=== PATIENT | male | born 1950 | race Caucasian/White ===

== ENCOUNTER → 2019-04-20 | Outpatient (CLI) | payer MEDICARE, BC ==
--- NOTE | 2019-04-20 09:41 | RADIOLOGY REPORT (SQ) ---
EXAM DESCRIPTION: CT ABD/PELVIS NO ORAL OR IV COMPLETED DATE/TIME: 04/20/2019 9:21 am REASON FOR STUDY: (R10.31)RIGHT LOWER QUADRANT PAIN R10.31 RIGHT LOWER QUADRANT PAIN COMPARISON: None. TECHNIQUE: CT scan of the abdomen and pelvis performed without intravenous or oral contrast. Images reviewed with lung, soft tissue, and bone windows. Reconstructed coronal and sagittal MPR images revi ewed. All images stored on PACS. All CT scanners at this facility use dose modulation, iterative reconstruction, and/or weight based d osing when appropriate to reduce radiation dose to as low as reasonably achievable (ALARA). [facility]: Dose Right [facility]: CareDose [facility]: Dose Right [facility]: Teradose 4D [facility]: [employer] RADIATION DOSE: CT Rad equipment meets quality standard of care and radiation dose reduction techniq ues were employed. CTDIvol: 8.5 mGy. DLP: 431 mGy-cm.mGy. LIMITATIONS: None. FINDINGS: LOWER CHEST: No significant findings. No nodules or infiltrates. NON-CONTRASTED LIVER, SPLEEN, ADRENALS: Evaluation limited by lack of IV contrast. No identified sign ificant masses. PANCREAS: No masses. No peripancreatic inflammatory changes. GALLBLADDER: No identified stones by CT criteria. No inflammatory changes to suggest cholecystitis. RIGHT KIDNEY AND URETER: No suspicious masses. Assessment limited by lack of IV contrast. Small non obstructing right renal calculi. No hydronephrosis or hydroureter. LEFT KIDNEY AND URETER: No suspicious masses. Assessment limited by lack of IV contrast. Numerous s mall nonobstructing left renal calculi. The largest measures 3.5 mm. No hydronephrosis or hydroure ter. AORTA AND RETROPERITONEUM: No aneurysm. No retroperitoneal masses or adenopathy. BOWEL AND PERITONEAL CAVITY: No obvious masses or inflammatory changes. No free fluid. APPENDIX: Surgically absent. PELVIS, BLADDER, AND ABDOMINAL WALL:There is a left inguinal hernia containing omental fat only. Edel ges through the pelvis are limited due to bilateral hip prostheses. BONES: No significant findings. OTHER: No other significant finding. IMPRESSION: Small nonobstructing renal calculi. No acute findings. COMMENT: Quality ID # [id number]: Final reports with documentation of one or more dose reduction techniques (e.g., Automated exposure control, adjustment of the mA and/or kV according to patient size, use of iterative reconstruction technique) TECHNICAL DOCUMENTATION: JOB ID: [id number] [facility] [employer]- All Rights Reserved Reading location - IP/workstation name: [email or web address]
== END ==
LOC: RAD 08:57
PROVIDERS: ATTEND Surgery
DX: N20.0 Calculus of kidney (principal); R10.31 Right lower quadrant pain
CPT/HCPCS: 74176

== ENCOUNTER 2019-05-07 06:44 | Inpatient (IN) | payer MEDICARE, BC ==
[2019-05-07] MEDS: IPRATROPIUM/ALBUTEROL 0.5-2.5 MG/3 ML AMPUL NEB ONE ×2 (06:53→07:03)
[2019-05-07] MEDS: METHYLPREDNISOLONE INJ 125 MG/2 ML SDV ONE ×2 (06:56→07:03)
[2019-05-07] MEDS ORDERED: METHYLPREDNISOLONE INJ 125 MG/2 ML SDV IV ONE (07:01)
[2019-05-07] MEDS ORDERED: IPRATROPIUM/ALBUTEROL 0.5-2.5 MG/3 ML AMPUL NEB ONE (07:01)
[2019-05-07] MEDS: ALBUTEROL SULFATE 0.083% NEB 2.5 MG/3 ML AMPUL NEB SCH ×2 (07:05→07:35)
[2019-05-07] MEDS ORDERED: BENZONATATE 100 MG CAPSULE PO ONE (07:18)
[2019-05-07] MEDS ORDERED: PREDNISONE 20 MG TABLET PO ONE (07:18)
[2019-05-07] MEDS ORDERED: LIDOCAINE 1% INJ-PF (10 MG/ML) 30 ML SDV NEB ONE (07:19)
[2019-05-07] MEDS ORDERED: NORMAL SALINE 1000 ML 1,000 ML IV ONE ×2 (07:40→10:09)
--- NOTE | 2019-05-07 08:28 | RADIOLOGY REPORT (SQ) ---
EXAM DESCRIPTION: CHEST SINGLE VIEW COMPLETED DATE/TIME: 05/07/2019 7:17 am REASON FOR STUDY: SOB; O2 sat 86% room air; Wheezing COMPARISON: None. FINDINGS: Single-view chest AP portable upright. Mild cardiomegaly and central vascular congestion. No pneumothorax. No consolidating pneumonia. TECHNICAL DOCUMENTATION: JOB ID: [id number] Reading location - IP/workstation name: [email or web address]
[2019-05-07 08:34] LABS: ABSOLUTE BASOPHILS # (AUTO) 0.1 10^3/uL (0.0-0.2); ABSOLUTE EOSINOPHILS # (AUTO) 0.3 10^3/uL (0.0-0.6); ABSOLUTE LYMPHOCYTES (AUTO) 1.2 10^3/uL (0.5-4.7); ABSOLUTE MONOCYTES (AUTO) 0.7 10^3/uL (0.1-1.4); ABSOLUTE NEUT (AUTO) 9.1 10^3/uL (1.7-8.2); BASOPHILS % (AUTO) 0.4 % (0-2); EOSINOPHILS % (AUTO) 2.7 % (0-6); HEMOGLOBIN 19.3 g/dL (13.5-17.0); LYMPHOCYTES % (AUTO) 10.8 % (13-45); MEAN CORPUSCULAR HEMOGLOBIN 30.8 pg (27.0-33.4); MEAN CORPUSCULAR HGB CONC 33.2 g/dL (32.0-36.0); MEAN CORPUSCULAR VOLUME 93 fl (80-97); MONOCYTES % (AUTO) 6.4 % (3-13); PLATELET COUNT 158 10^3/uL (150-450); RED BLOOD COUNT 6.25 10^6/uL (4.35-5.55); RED CELL DISTRIBUTION WIDTH 13.8 % (11.5-14.0); SEGMENTED NEUTROPHILS % (AUTO) 79.7 % (42-78); TOTAL CELLS COUNTED % (AUTO) 100 %; WHITE BLOOD COUNT 11.5 10^3/uL (4.0-10.5)
[2019-05-07 08:37] LABS: HEMATOCRIT 58.1 % (37.9-51.0)
[2019-05-07 08:40] LABS: ALBUMIN 4.3 g/dL (3.5-5.0); ALKALINE PHOSPHATASE 69 U/L (38-126); ANION GAP 9 (5-19); ASPARTATE AMINO TRANSFERASE 22 U/L (17-59); BILIRUBIN,DIRECT 0.3 mg/dL (0.0-0.4); BILIRUBIN,TOTAL 0.5 mg/dL (0.2-1.3); BLOOD UREA NITROGEN 9 mg/dL (7-20); CALCIUM 9.3 mg/dL (8.4-10.2); CARBON DIOXIDE 27 mmol/L (22-30); CHLORIDE 101 mmol/L (98-107); CREATINE KINASE 173 U/L (55-170); GLUCOSE 112 mg/dL (75-110); POTASSIUM 4.2 mmol/L (3.6-5.0); TOTAL PROTEIN 6.9 g/dL (6.3-8.2)
--- NOTE | 2019-05-07 09:12 | ER Document Report ---
Entered by PRIYANK RODRIGUEZ SCRIBE 05/07/19 0710 Acting as scribe for:AGUILAR HENNING MD ED Respiratory Problem - General Chief Complaint: Productive Cough Stated Complaint: COUGH Time Seen by Provider: 05/07/19 07:10 Primary Care Provider: ELVIA MORROW [ACTIVE STAFF] - Follow up as needed Mode of Arrival: Ambulatory Information source: Patient Notes: Patient is a 68-year-old male who presents to the emergency department today with complaints of a cough. Patient states he has had trouble bringing up anything, stating he has been small amounts and clear. Patient states he took Mucinex about midnight last night with no relief. Patient mentions he had been having low blood pressure so he was told to stop his blood pressure medications. He stopped his BP meds and his blood pressure began to rise and a week and half ago he was started back on his blood pressure medication. TRAVEL OUTSIDE OF THE [place] IN LAST 30 DAYS: No - Related Data Allergies/Adverse Reactions: No Known Allergies Allergy (Unverified 05/07/19 07:04) Past Medical History - General Information source: Patient - Social History Smoking Status: Unknown if Ever Smoked Frequency of alcohol use: None Drug Abuse: None Lives with: Family Family History: Reviewed & Not Pertinent Patient has suicidal ideation: No Patient has homicidal ideation: No - Past Medical History Cardiac Medical History: Reports: Hx Coronary Artery Disease, Hx Hypercholesterolemia, Hx Hypertension Pulmonary Medical History: Reports: Hx COPD Past Surgical History: Reports: Hx Appendectomy, Hx Coronary Artery Bypass Graft - Triple bypass, Hx Herniorrhaphy, Hx Orthopedic Surgery - bilateral hip replacemet. left rotator cuff repair. anterior cervical fusio, Hx Tonsillectomy Review of Systems - Review of Systems Constitutional: No symptoms reported EENT: No symptoms reported Cardiovascular: No symptoms reported Respiratory: See HPI, Cough Gastrointestinal: No symptoms reported Genitourinary: No symptoms reported Male Genitourinary: No symptoms reported Musculoskeletal: No symptoms reported Skin: No symptoms reported Hematologic/Lymphatic: No symptoms reported Neurological/Psychological: No symptoms reported -: Yes All other systems reviewed and negative Physical Exam - Vital signs Vitals: Temp Pulse Resp BP Pulse Ox 98.7 F 95 24 H 144/66 H 86 L 05/07/19 06:44 05/07/19 06:44 05/07/19 06:44 05/07/19 06:44 05/07/19 06:44 - Notes Notes: Physical Exam: General: Alert, appears well. HEENT: Normocephalic. Atraumatic. PERRL. Extraocular movements intact. Oropharynx clear. Neck: Supple. Non-tender. Respiratory: No respiratory distress. Wheezing and rhonchi with forced cough. Dry very harsh sounding cough throughout exam. Cardiovascular: Regular rate and rhythm. Abdominal: Normal Inspection. Non-tender. No distension. Normal Bowel Sounds. Back: No gross abnormalities. Extremities: Moves all four extremities. Upper extremities: Normal inspection. Normal ROM. Lower extremities: Normal inspection. No edema. Normal ROM. Neurological: Normal cognition. AAOx4. Normal speech. Psychological: Normal affect. Normal Mood. Skin: Warm. Dry. Normal color. Course - Re-evaluation Re-evalutation: 05/07/19 10:07 The patient's blood pressure remains low with systolic pressure in the 80s. His hemoglobin is 19.3, when asked about this he states that 3 years [address] he saw Dr. Barnhart for high hemoglobin and had 3 episodes of phlebotomy which brought it down to about 17. He states it has stayed that way for the last 3 years. The last time his blood was checked was about 1-1/2 months ago and they said it was normal then. He still does have diffuse expiratory expiratory wheezes and some rhonchi which sounds more like COPD exacerbation than heart failure. - Vital Signs Vital signs: Temp Pulse Resp BP Pulse Ox 98.7 F 95 21 H 94/73 L 94 05/07/19 06:44 05/07/19 06:44 05/07/19 08:45 05/07/19 08:45 05/07/19 08:45 - Laboratory Result Diagrams: 05/07/19 06:55 05/07/19 06:55 Laboratory results interpreted by me: 05/07/19 05/07/19 06:55 06:55 WBC 11.5 H RBC 6.25 H Hgb 19.3 H Hct 58.1 H Lymph % (Auto) 10.8 L Absolute Neuts (auto) 9.1 H Seg Neutrophils % 79.7 H Sodium 136.9 L Glucose 112 H Creatine Kinase 173 H - Diagnostic Test Radiology reviewed: Image reviewed, Reports reviewed - Mild cardiomegaly with central vascular congestion - EKG Interpretation by Fl EKG shows normal: Sinus rhythm, [place], Intervals, QRS Complexes, ST-T Waves Rate: Normal - 85 Rhythm: NSR, APC's P Waves: LAE - Consults Zoraida Bob NP Time consulted: 10:12 Consulted provider: will come to ER Critical Care Note - Critical Care Note Total time excluding time spent on procedures (mins): 40 Discharge - Discharge Clinical Impression: Acute exacerbation of chronic obstructive pulmonary disease (COPD), Polycythemia Hypotension Qualifiers: Hypotension type: unspecified hypotension type Qualified Code(s): I95.9 - Hypotension, unspecified Condition: Fair Disposition: ADMITTED INPATIENT Admitting Provider: Azalia (Hospitalist) Unit Admitted: Telemetry Referrals: ELVIA MORROW [ACTIVE STAFF] - Follow up as needed Scribe Attestation: 05/07/19 07:44 I personally performed the services described in the documentation, reviewed and edited the documentation which was dictated to the scribe in my presence, and it accurately records my words and actions. I personally performed the services described in the documentation, reviewed and edited the documentation which was dictated to the scribe in my presence, and it accurately records my words and actions.
[2019-05-07 10:38] LABS: INTERNATIONAL RATION (INR) 1.09; PROTHROMBIN TIME 14.1 SEC (11.4-15.4)
[2019-05-07 10:41] LABS: D-DIMER 0.49 ug/mL (0.00-0.50)
[2019-05-07 10:41] LABS: APPEARANCE,URINE CLEAR; BILIRUBIN,URINE NEGATIVE (NEGATIVE); COLOR,URINE YELLOW; GLUCOSE, URINE NEGATIVE (NEGATIVE); KETONES,URINE NEGATIVE (NEGATIVE); LEUKOCYTE ESTERASE,URINE NEGATIVE (NEGATIVE); NITRITE,URINE NEGATIVE (NEGATIVE); PROTEIN,URINE NEGATIVE (NEGATIVE); URINE SPECIFIC GRAVITY 1.006; UROBILINOGEN,URINE NEGATIVE mg/dL (<2.0)
[2019-05-07] MEDS ORDERED: MAG HYDROX/AL HYDROX/SIMETH SUSP 30 ML UDCUP PO PRN (11:13)
[2019-05-07] MEDS ORDERED: ACETAMINOPHEN 325 MG TABLET PO PRN (11:13)
[2019-05-07] MEDS ORDERED: ALBUTEROL SULFATE 0.083% NEB 2.5 MG/3 ML AMPUL NEB PRN (11:13)
[2019-05-07] MEDS ORDERED: ONDANSETRON HCL INJ/PF 4 MG/2 ML SDV IV PRN (11:13)
[2019-05-07] MEDS ORDERED: DIAZEPAM 2 MG TABLET PO PRN (11:26)
[2019-05-07] MEDS ORDERED: NICOTINE 14 MG/24 HR PATCH.TD24 TD PRN (11:26)
[2019-05-07 12:18] LABS: ARTERIAL BLOOD HCO3 24.8 mmol/L (20-24); ARTERIAL BLOOD O2 SATURATION 91.5 % (94-98); ARTERIAL BLOOD PCO2 53.1 mmHg (35-45); ARTERIAL BLOOD PH 7.29 (7.35-7.45); ARTERIAL BLOOD PO2 68.8 mmHg (80-100); ARTERIAL BLOOD TOTAL CO2 26.4 mmol/L (23-27)
[2019-05-07 12:19] LABS: ARTERIAL BLOOD FIO2 1L
[2019-05-07] MEDS: ASPIRIN 81 MG TABLET, CHEWABLE PO SCH (12:34)
[2019-05-07 13:07] LABS: HEMATOCRIT 54.9 % (37.9-51.0); HEMOGLOBIN 18.7 g/dL (13.5-17.0); MEAN CORPUSCULAR HEMOGLOBIN 31.6 pg (27.0-33.4); MEAN CORPUSCULAR VOLUME 93 fl (80-97); PLATELET COUNT 181 10^3/uL (150-450); RED CELL DISTRIBUTION WIDTH 14.1 % (11.5-14.0); WHITE BLOOD COUNT 11.9 10^3/uL (4.0-10.5)
[2019-05-07] MEDS: IPRATROPIUM/ALBUTEROL 0.5-2.5 MG/3 ML AMPUL NEB SCH ×2 (13:43→21:44)
[2019-05-07] MEDS: HEPARIN SOD (PORCINE) 5,000 UNIT/ML 1 ML VIAL SUBCUT SCH ×2 (14:41→22:03)
[2019-05-07] MEDS: METHYLPREDNISOLONE INJ 40 MG/1 ML SDV IV SCH ×2 (14:41→22:03)
--- NOTE | 2019-05-07 15:31 | PDOC H&P ---
History of Present Illness Admission Date/PCP: 05/07/19 10:53 SHELDON BLACK PA-C Patient complains of: shortness of breath History of Present Illness: TRINITY SANCHEZ is a 68 year old male with a past medical history of hypertension, hyperlipidemia, CABG x3, and COPD who presented to the emergency department today with a complaint of sudden onset of shortness of breath beginning last night associated with productive cough, low-grade fever, and left-sided chest pain. He denies radiation of pain; described as tightness, without alleviating or aggravating factors. Evaluation in the emergency department revealed tachypnea, hypoxia on room air, hypotension, leukocytosis, elevated hemoglobin (19.3), normal coags and d-dimer, unremarkable chemistries, normal troponin, EKG demonstrating sinus rhythm with PACs, and benign chest x-ray. Patient was provided nebulizer treatments, IV Solu-Medrol, IV fluid bolus, and referred to the hospitalist service for admission and management of the above- stated complaints and findings. Past Medical History Cardiac Medical History: Reports: Coronary Artery Disease, Hyperlipidema, Hypertension Pulmonary Medical History: Reports: Chronic Obstructive Pulmonary Disease (COPD) EENT Medical History: Reports: None Neurological Medical History: Reports: None Endocrine Medical History: Reports: None Renal/ Medical History: Reports: None Malignancy Medical History: Reports: None GI Medical History: Reports: None Musculoskeltal Medical History: Reports: None Skin Medical History: Reports: None Psychiatric Medical History: Reports: Alcohol Dependency, Tobacco Dependency Traumatic Medical History: Reports: None Hematology: Reports: None, Other - Chronically elevated H&H Infectious Medical History: Reports: None Past Surgical History Past Surgical History: Reports: Appendectomy, Coronary Artery Bypass Graft - Tr iple bypass, Herniorrhaphy, Orthopedic Surgery - bilateral hip replacemet. left rotator cuff repair. anterior cervical fusio, Tonsillectomy Social History Information Source: Patient Lives with: Family Smoking Status: Current Every Day Smoker Cigars Per Day: 3 Number of Years Smokin Frequency of Alcohol Use: Heavy Amount of Alcoholic Beverages Per Day: 2-3 Hx Recreational Drug Use: No Drugs: None Hx Prescription Drug Abuse: No - Advance Directive Resuscitation Status: Full Code Family History Family History: Reviewed & Not Pertinent Parental Family History Reviewed: Yes Children Family History Reviewed: Yes Sibling(s) Family History Reviewed.: Yes Medication/Allergy Home Medications: Aspirin [Ecotrin 81 mg EC Tablet] 81 mg PO DAILY 05/07/19 Metoprolol Succinate [Toprol Xl 25 mg Tab.sr] 25 mg PO DAILY 05/07/19 Sildenafil Citrate [Viagra] 50 mg PO ASDIR PRN MDD 100 MG 05/07/19 Simvastatin [Zocor 40 mg Tablet] 40 mg PO QHS 05/07/19 Zolpidem Tartrate [Ambien 5 mg Tablet] 5 mg PO HSP PRN 05/07/19 Allergies/Adverse Reactions: No Known Allergies Allergy (Unverified 05/07/19 07:04) Review of Systems Constitutional: PRESENT: fever(s). ABSENT: chills, headache(s), weight gain, weight loss Eyes: ABSENT: visual disturbances Ears: ABSENT: hearing changes Cardiovascular: PRESENT: chest pain, dyspnea on exertion. ABSENT: edema, orthropnea, palpitations Respiratory: PRESENT: cough, dyspnea, sputum. ABSENT: hemoptysis Gastrointestinal: ABSENT: abdominal pain, constipation, diarrhea, hematemesis, hematochezia, nausea, vomiting Genitourinary: ABSENT: dysuria, hematuria Musculoskeletal: ABSENT: joint swelling Integumentary: ABSENT: rash, wounds Neurological: ABSENT: abnormal gait, abnormal speech, confusion, dizziness, focal weakness, syncope Psychiatric: ABSENT: anxiety, depression, homidical ideation, suicidal ideation Endocrine: ABSENT: cold intolerance, heat intolerance, polydipsia, polyuria Hematologic/Lymphatic: ABSENT: easy bleeding, easy bruising Physical Exam Vital Signs: Temp Pulse Resp BP Pulse Ox 98.7 F 100 17 128/79 H 95 05/07/19 06:44 05/07/19 13:43 05/07/19 14:00 05/07/19 13:01 05/07/19 14:00 Intake & Output 05/06/19 05/07/19 05/08/19 06:59 06:59 06:59 Intake Total 1999 Balance 1999 General appearance: PRESENT: no acute distress, cooperative, well-developed, well-nourished Head exam: PRESENT: atraumatic, normocephalic Eye exam: PRESENT: conjunctiva pink, EOMI, PERRLA. ABSENT: scleral icterus Ear exam: PRESENT: normal external ear exam Mouth exam: PRESENT: moist, tongue midline Neck exam: ABSENT: carotid bruit, JVD, lymphadenopathy, thyromegaly Respiratory exam: PRESENT: accessory muscle use, prolonged expiratory phas, rhon chi, tachypnea, wheezes. ABSENT: rales Cardiovascular exam: PRESENT: RRR, +S1, +S2. ABSENT: diastolic murmur, rubs, systolic murmur Pulses: PRESENT: normal dorsalis pedis pul Vascular exam: PRESENT: normal capillary refill GI/Abdominal exam: PRESENT: normal bowel sounds, soft. ABSENT: distended, guarding, mass, organolmegaly, rebound, tenderness Rectal exam: PRESENT: deferred Extremities exam: PRESENT: full ROM. ABSENT: calf tenderness, clubbing, pedal edema Musculoskeletal exam: PRESENT: ambulatory Neurological exam: PRESENT: alert, awake, oriented to person, oriented to place, oriented to time, oriented to situation, CN II-XII grossly intact. ABSENT: motor sensory deficit Psychiatric exam: PRESENT: appropriate affect, normal mood. ABSENT: homicidal ideation, suicidal ideation Skin exam: PRESENT: dry, intact, warm. ABSENT: cyanosis, rash Results Laboratory Results: 05/07/19 12:55 05/07/19 06:55 05/07/19 05/07/19 05/07/19 06:55 06:55 10:10 WBC 11.5 H RBC 6.25 H Hgb 19.3 H Hct 58.1 H MCV 93 MCH 30.8 MCHC 33.2 RDW 13.8 Plt Count 158 Seg Neutrophils % 79.7 H Carbonic Acid HCO3/H2CO3 Ratio ABG pH ABG pCO2 ABG pO2 ABG HCO3 ABG O2 Saturation ABG Base Excess FiO2 Sodium 136.9 L Potassium 4.2 Chloride 101 Carbon Dioxide 27 Anion Gap 9 BUN 9 Creatinine 0.75 Est GFR ( Amer) > 60 Glucose 112 H Calcium 9.3 Total Bilirubin 0.5 AST 22 Alkaline Phosphatase 69 Total Protein 6.9 Albumin 4.3 Urine Color YELLOW Urine Appearance CLEAR Urine pH 6.0 Ur Specific [place] 1.006 Urine Protein NEGATIVE Urine Glucose (UA) NEGATIVE Urine Ketones NEGATIVE Urine Blood SMALL H Urine Nitrite NEGATIVE Ur Leukocyte Esterase NEGATIVE Urine WBC (Auto) 1 Urine RBC (Auto) 2 05/07/19 05/07/19 11:44 12:55 WBC 11.9 H RBC 5.90 H Hgb 18.7 H Hct 54.9 H MCV 93 MCH 31.6 MCHC 34.0 RDW 14.1 H Plt Count 181 Seg Neutrophils % Carbonic Acid 1.60 H HCO3/H2CO3 Ratio 15:1 ABG pH 7.29 L ABG pCO2 53.1 H ABG pO2 68.8 L ABG HCO3 24.8 H ABG O2 Saturation 91.5 L ABG Base Excess -3.0 FiO2 1L Sodium Potassium Chloride Carbon Dioxide Anion Gap BUN Creatinine Est GFR ( Amer) Glucose Calcium Total Bilirubin AST Alkaline Phosphatase Total Protein Albumin Urine Color Urine Appearance Urine pH Ur Specific [place] Urine Protein Urine Glucose (UA) Urine Ketones Urine Blood Urine Nitrite Ur Leukocyte Esterase Urine WBC (Auto) Urine RBC (Auto) 05/07/19 05/07/19 05/07/19 06:55 06:55 06:55 Creatine Kinase 173 H Troponin I < 0.012 NT-Pro-B Natriuret Pep 287 Assessment and Plan - Diagnosis (1) Acute respiratory failure with hypoxia Is this a current diagnosis for this admission?: Yes Plan: Secondary to COPD exacerbation. Patient was found to have room air saturation of 86%; he is not home O2 dependent. ABG demonstrates respiratory acidosis with hypercapnia and hypoxia. D-dimer negative. Chest x-ray benign. No evidence of CHF on chest x-ray, laboratory evaluation, or exam. He is provided supplemental oxygen and BiPAP as needed to meet saturations gre ater than 89%. Follow-up ABG in the morning. Remaining management as below. (2) Acute exacerbation of chronic obstructive pulmonary disease (COPD) Is this a current diagnosis for this admission?: Yes Plan: Patient with history of COPD. He does have an 80-year pack history; stopped smoking 2 packs/day proximately 2 years ago when he transition to 3 cigars daily. He continues to have daily use. Is noted to have wheezing, rhonchi, accessory muscle use, and tachypnea. Supplemental oxygen and BiPAP as needed to maintain saturations greater than 89%. Continue scheduled and as needed nebulizer treatments. Continue IV Solu-Medrol. Mucinex twice daily. Incentive spirometer and flutter valve when off BiPAP. (3) Chest pain Is this a current diagnosis for this admission?: Yes Plan: Unclear etiology; cardiac versus musculoskeletal secondary to respiratory distr ess. Patient describes left chest pain, nonradiating, without exacerbating or alleviating factors. Pain is not worsened by movement/activity, deep inspiration or cough. EKG demonstrates normal sinus rhythm without acute findings. Chest x-ray is benign. Initial troponin is negative. We will continue monitor on continuous cardiac telemetry. Continue to trend troponins. Daily aspirin and statin therapy. (4) Hypotension Qualifiers: Hypotension type: unspecified hypotension type Qualified Code(s): I95.9 - Hypotension, unspecified Is this a current diagnosis for this admission?: Yes Plan: Unclear etiology improved following 2 L IV fluids. Patient reports that he was recently told to stop his lisinopril. He discontinued use for approximately 2 months but then noted that his blood pressure was 165/90 and so resumed lisinopril 2 weeks ago. This may be the possible cause of his hypotension today. Continue maintenance IV fluids. Orthostatic blood pressures every shift. Continue to hold lisinopril. (5) Polycythemia Is this a current diagnosis for this admission?: Yes Plan: Patient reports history of the same; proximal he 3 years ago the patient was incidentally found to have an elevated hemoglobin during preoperative blood work. He did see Dr. Barnhart who did phlebotomy x3 but reports that she was never able to identify the cause of his elevated H&H. Hemoglobin today 19.3. Of note, the patient does have an 80-year pack history and is a continuous tobacco user. Hemoglobin is minimally improved to 18.7 following a 2 L normal saline bolus. Continue maintenance IV fluids. Daily CBC. Smoking cessation is encouraged. Management of COPD exacerbation as above. DVT prophylaxis with heparin. Consider hematology consultation. (6) Tobacco dependence Is this a current diagnosis for this admission?: Yes Plan: Smoking cessation is encouraged. Nicotine replacement therapies are provided. (7) Alcohol dependence Qualifiers: Substance use status: uncomplicated Qualified Code(s): F10.20 - Alcohol dependence, uncomplicated Is this a current diagnosis for this admission?: Yes Plan: Patient admits to 2-3 drinks daily. Denies history of withdrawal. Folic acid and thiamin supplementation. PRN p.o. ativan as needed. Monitor closely for evidence of withdrawal.
--- NOTE | 2019-05-07 19:45 | EKG REPORT ---
SEVERITY:- BORDERLINE ECG - SINUS RHYTHM ATRIAL PREMATURE COMPLEX PROBABLE LEFT ATRIAL ABNORMALITY : Confirmed by: Luly Carmona MD 07-May-2019 19:45:35
[2019-05-07] MEDS: GUAIFENESIN 600 MG TABLET.SA PO SCH (22:03)
[2019-05-07] MEDS: FAMOTIDINE 20 MG TABLET PO SCH (22:03)
[2019-05-07] MEDS: ATORVASTATIN CALCIUM 40 MG TABLET PO SCH (22:03)
[2019-05-08] MEDS: ZOLPIDEM TARTRATE 5 MG TABLET PO PRN ×2 (00:05→21:33)
[2019-05-08] MEDS: IPRATROPIUM/ALBUTEROL 0.5-2.5 MG/3 ML AMPUL NEB SCH ×4 (02:23→20:05)
[2019-05-08] MEDS: METHYLPREDNISOLONE INJ 40 MG/1 ML SDV IV SCH ×3 (05:39→21:34)
[2019-05-08] MEDS: HEPARIN SOD (PORCINE) 5,000 UNIT/ML 1 ML VIAL SUBCUT SCH ×3 (05:40→21:32)
[2019-05-08 05:45] LABS: HEMATOCRIT 54.4 % (37.9-51.0); HEMOGLOBIN 18.2 g/dL (13.5-17.0); MEAN CORPUSCULAR HEMOGLOBIN 31.2 pg (27.0-33.4); MEAN CORPUSCULAR HGB CONC 33.4 g/dL (32.0-36.0); MEAN CORPUSCULAR VOLUME 93 fl (80-97); PLATELET COUNT 154 10^3/uL (150-450); RED BLOOD COUNT 5.83 10^6/uL (4.35-5.55); RED CELL DISTRIBUTION WIDTH 13.9 % (11.5-14.0); WHITE BLOOD COUNT 12.9 10^3/uL (4.0-10.5)
[2019-05-08 06:36] LABS: ANION GAP 6 (5-19); BLOOD UREA NITROGEN 12 mg/dL (7-20); CALCIUM 9.1 mg/dL (8.4-10.2); CARBON DIOXIDE 29 mmol/L (22-30); CHLORIDE 102 mmol/L (98-107); CHOLESTEROL 124.15 mg/dL (0-200); GLUCOSE 125 mg/dL (75-110); POTASSIUM 4.5 mmol/L (3.6-5.0); TRIGLYCERIDES 79 mg/dL (<150)
[2019-05-08 06:47] LABS: DIRECT LDL 84 mg/dL (<100)
[2019-05-08] MEDS: NORMAL SALINE 1000 ML 1,000 ML IV PRN ×2 (08:33→18:29)
[2019-05-08] MEDS ORDERED: METOPROLOL SUCCINATE 25 MG TAB.SR.24H PO SCH (10:00)
[2019-05-08 10:46] LABS: ARTERIAL BLOOD BASE EXCESS -0.1 mmol/L; ARTERIAL BLOOD FIO2 28%; ARTERIAL BLOOD H2CO3 1.36 mmol/L (1.05-1.35); ARTERIAL BLOOD HCO3 25.7 mmol/L (20-24); ARTERIAL BLOOD O2 SATURATION 95.2 % (94-98); ARTERIAL BLOOD PCO2 45.1 mmHg (35-45); ARTERIAL BLOOD PH 7.37 (7.35-7.45); ARTERIAL BLOOD PO2 77.8 mmHg (80-100)
[2019-05-08] MEDS: FAMOTIDINE 20 MG TABLET PO SCH ×2 (11:26→21:33)
[2019-05-08] MEDS: GUAIFENESIN 600 MG TABLET.SA PO SCH ×2 (11:26→21:34)
[2019-05-08] MEDS: ASPIRIN 81 MG TABLET, CHEWABLE PO SCH (11:27)
[2019-05-08] MEDS: DOCUSATE SODIUM 100 MG CAPSULE PO SCH (11:27)
--- NOTE | 2019-05-08 19:13 | PDOC PROGRESS REPORT ---
Subjective Progress Note for:: 05/08/19 Subjective:: TRINITY SANCHEZ is a 68 year old male with a past medical history of hypertension, hyperlipidemia, CABG x3, and COPD who was admitted 05/07/2019 for acute respiratory failure with hypoxia secondary to COPD exacerbation. Patient was seen on morning rounds with his present. He was found sitting up to the edge of the bed, comfortably, on supplemental oxygen by nasal cannula. He reports that he use the BiPAP overnight and found it helped his dyspnea significantly, however now with facial pain related to the mask. He does report that he was told to use a CPAP at home once but was unable to tolerate the mask and so has returned the machine. He previously has a slight improvement in his breathing today, though with increased sputum production. He denies fever, chills, chest pain, palpitations, orthopnea, abdominal pain, nausea vomiting and diarrhea. He has no questions or concerns. No concerns per nursing. Reason For Visit: ACUTE RESPIRATORY FAILURE WITH HYPOXIA, Physical Exam Vital Signs: Temp Pulse Resp BP Pulse Ox 98.0 F 87 22 H 92/57 L 95 05/08/19 15:29 05/08/19 15:29 05/08/19 16:11 05/08/19 15:29 05/08/19 15:29 Intake & Output 05/07/19 05/08/19 05/09/19 06:59 06:59 06:59 Intake Total 3350 1838 Balance 3350 1838 Weight 75.2 kg General appearance: PRESENT: no acute distress, cooperative, well-developed, well-nourished Head exam: PRESENT: atraumatic, normocephalic Eye exam: PRESENT: conjunctiva pink, EOMI, PERRLA. ABSENT: scleral icterus Ear exam: PRESENT: normal external ear exam Mouth exam: PRESENT: moist, tongue midline Neck exam: ABSENT: carotid bruit, JVD, lymphadenopathy, thyromegaly Respiratory exam: PRESENT: accessory muscle use, prolonged expiratory phas, rhonchi, symmetrical, wheezes, other - tight. Supplemental oxygen via NC. ABSENT: rales Cardiovascular exam: PRESENT: RRR, +S1, +S2. ABSENT: diastolic murmur, rubs, systolic murmur Pulses: PRESENT: normal dorsalis pedis pul Vascular exam: PRESENT: normal capillary refill GI/Abdominal exam: PRESENT: normal bowel sounds, soft. ABSENT: distended, guarding, mass, organolmegaly, rebound, tenderness Rectal exam: PRESENT: deferred Extremities exam: PRESENT: full ROM. ABSENT: calf tenderness, clubbing, pedal edema Musculoskeletal exam: PRESENT: ambulatory Neurological exam: PRESENT: alert, awake, oriented to person, oriented to place, oriented to time, oriented to situation, CN II-XII grossly intact. ABSENT: motor sensory deficit Psychiatric exam: PRESENT: appropriate affect, normal mood. ABSENT: homicidal ideation, suicidal ideation Skin exam: PRESENT: dry, intact, warm. ABSENT: cyanosis, rash Results Laboratory Results: 05/08/19 04:59 05/08/19 04:59 05/08/19 05/08/19 05/08/19 04:59 04:59 10:25 WBC 12.9 H RBC 5.83 H Hgb 18.2 H Hct 54.4 H MCV 93 MCH 31.2 MCHC 33.4 RDW 13.9 Plt Count 154 Carbonic Acid 1.36 H HCO3/H2CO3 Ratio 18:1 ABG pH 7.37 ABG pCO2 45.1 H ABG pO2 77.8 L ABG HCO3 25.7 H ABG O2 Saturation 95.2 ABG Base Excess -0.1 FiO2 28% Sodium 137.3 Potassium 4.5 Chloride 102 Carbon Dioxide 29 Anion Gap 6 BUN 12 Creatinine 0.66 Est GFR ( Amer) > 60 Glucose 125 H Calcium 9.1 Triglycerides 79 Cholesterol 124.15 LDL Cholesterol Direct 84 VLDL Cholesterol 16.0 HDL Cholesterol 45 05/07/19 05/07/19 05/07/19 06:55 06:55 06:55 Creatine Kinase 173 H Troponin I < 0.012 NT-Pro-B Natriuret Pep 287 05/07/19 05/07/19 14:50 20:53 Creatine Kinase Troponin I < 0.012 < 0.012 NT-Pro-B Natriuret Pep Assessment and Plan - Diagnosis (1) Acute respiratory failure with hypoxia Is this a current diagnosis for this admission?: Yes Plan: Secondary to COPD exacerbation. Patient was found to have room air saturation of 86%; he is not home O2 dependent. ABG demonstrates respiratory acidosis with hypercapnia and hypoxia. Follow-up ABG is improved. D-dimer negative. Chest x-ray benign. No evidence of CHF on chest x-ray, laboratory evaluation, or exam. He is provided supplemental oxygen and BiPAP as needed to meet saturations gre ater than 89%. Remaining management as below. (2) Acute exacerbation of chronic obstructive pulmonary disease (COPD) Is this a current diagnosis for this admission?: Yes Plan: Patient with history of COPD. He does have an 80-year pack history; stopped smoking 2 packs/day proximately 2 years ago when he transition to 3 cigars daily. He continues to have daily use. Is noted to have continued wheezing, rhonchi, accessory muscle use, and tachypnea. Supplemental oxygen and BiPAP as needed to maintain saturations greater than 89% . Continue scheduled and as needed nebulizer treatments. Continue IV Solu-Medrol. Mucinex twice daily. Incentive spirometer and flutter valve when off BiPAP. Recommend outpatient pulmonology follow-up and overnight sleep study. (3) Chest pain Is this a current diagnosis for this admission?: Yes Plan: Resovled; likely secondary to acute respiratory failure/distress. Patient describes left chest pain, nonradiating, without exacerbating or alleviating factors. Pain is not worsened by movement/activity, deep inspiration or cough. EKG demonstrates normal sinus rhythm without acute findings. Chest x-ray is benign. Troponins negative x 3 Lipid panel and A1C are nml. We will continue monitor on continuous cardiac telemetry. Continue to trend troponins. Daily aspirin and statin therapy. (4) Hypotension Qualifiers: Hypotension type: unspecified hypotension type Qualified Code(s): I95.9 - Hypotension, unspecified Is this a current diagnosis for this admission?: Yes Plan: Unclear etiology improved following 2 L IV fluids. Patient reports that he was recently told to stop his lisinopril. He disco ntinued use for approximately 2 months but then noted that his blood pressure was 165/90 and so resumed lisinopril 2 weeks ago. This may be the possible cause of his hypotension today. Continue maintenance IV fluids. Orthostatic blood pressures every shift. Continue to hold lisinopril. Half dose Metoprolol with holding parameters. Am Cortisol level pending; consider midodrine. (5) Polycythemia Is this a current diagnosis for this admission?: Yes Plan: Patient reports history of the same; proximal he 3 years ago the patient was incidentally found to have an elevated hemoglobin during preoperative blood work. He did see Dr. Barnhart who did phlebotomy x3 but reports that she was never able to identify the cause of his elevated H&H. Hemoglobin today 19.3-> 18.2 Of note, the patient does have an 80-year pack history and is a continuous tobacco user. Continue maintenance IV fluids. Daily CBC. Smoking cessation is encouraged. Management of COPD exacerbation as above. DVT prophylaxis with heparin. Discussed with Dr. Nunez; no additional work up/management needed while admitted. Follow up as outpatient. (6) Tobacco dependence Is this a current diagnosis for this admission?: Yes Plan: Smoking cessation is encouraged. Nicotine replacement therapies are provided. (7) Alcohol dependence Qualifiers: Substance use status: uncomplicated Qualified Code(s): F10.20 - Alcohol dependence, uncomplicated Is this a current diagnosis for this admission?: Yes Plan: Patient admits to 2-3 drinks daily. Denies history of withdrawal. Folic acid and thiamin supplementation. PRN p.o. ativan as needed. Monitor closely for evidence of withdrawal. - Time Time Spent with patient: 25-34 minutes Medications reviewed and adjusted accordingly: Yes Anticipated discharge: Home Within: within 72 hours
[2019-05-08] MEDS: ACETYLCYSTEINE 20% SOLN 800 MG/4 ML VIAL.NEB NEB SCH (20:05)
[2019-05-08] MEDS ORDERED: METOPROLOL SUCCINATE 25 MG TAB.SR.24H PO ONE (20:30)
[2019-05-08] MEDS: ATORVASTATIN CALCIUM 40 MG TABLET PO SCH (21:34)
[2019-05-09] MEDS: IPRATROPIUM/ALBUTEROL 0.5-2.5 MG/3 ML AMPUL NEB SCH ×4 (02:17→23:52)
[2019-05-09 04:51] LABS: HEMATOCRIT 51.8 % (37.9-51.0); HEMOGLOBIN 17.1 g/dL (13.5-17.0); MEAN CORPUSCULAR HEMOGLOBIN 30.8 pg (27.0-33.4); MEAN CORPUSCULAR VOLUME 93 fl (80-97); PLATELET COUNT 146 10^3/uL (150-450); RED BLOOD COUNT 5.56 10^6/uL (4.35-5.55); RED CELL DISTRIBUTION WIDTH 13.5 % (11.5-14.0); WHITE BLOOD COUNT 13.4 10^3/uL (4.0-10.5)
[2019-05-09] MEDS: METHYLPREDNISOLONE INJ 40 MG/1 ML SDV IV SCH ×3 (05:53→23:12)
[2019-05-09] MEDS: HEPARIN SOD (PORCINE) 5,000 UNIT/ML 1 ML VIAL SUBCUT SCH ×3 (05:53→23:20)
[2019-05-09] MEDS: METOPROLOL SUCCINATE 25 MG TAB.SR.24H PO SCH (09:12)
[2019-05-09] MEDS: DOCUSATE SODIUM 100 MG CAPSULE PO SCH (09:12)
[2019-05-09] MEDS: ASPIRIN 81 MG TABLET, CHEWABLE PO SCH (09:12)
[2019-05-09] MEDS: FAMOTIDINE 20 MG TABLET PO SCH ×2 (09:12→23:12)
[2019-05-09] MEDS: GUAIFENESIN 600 MG TABLET.SA PO SCH ×2 (09:13→23:12)
[2019-05-09] MEDS: ACETYLCYSTEINE 20% SOLN 800 MG/4 ML VIAL.NEB NEB SCH ×2 (09:46→19:58)
[2019-05-09 11:54] LABS: FREE T3 3.19 pg/mL (2.77-5.27); FREE T4 (FREE THYROXINE) 0.9 ng/dL (0.78-2.19)
[2019-05-09] MEDS ORDERED: COSYNTROPIN INJ 0.25 MG VIAL IV PRN (12:00)
[2019-05-09 12:07] LABS: THYROID STIMULATING HORMONE 1.55 uIU/mL (0.47-4.68)
[2019-05-09] MEDS: NORMAL SALINE 1000 ML 1,000 ML IV PRN (15:17)
[2019-05-09] MEDS ORDERED: HYDROCORTISONE 10 MG TABLET PO ONE (16:00)
[2019-05-09] MEDS ORDERED: CYCLOSPORINE 0.05% OPH EMULSIO 0.4 ML DROPERETTE OU ONE (16:00)
--- NOTE | 2019-05-09 18:39 | PDOC PROGRESS REPORT ---
Subjective Progress Note for:: 05/09/19 Subjective:: TRINITY SANCHEZ is a 68 year old male with a past medical history of hypertension, hyperlipidemia, CABG x3, and COPD who was admitted 05/07/2019 for acute respiratory failure with hypoxia secondary to COPD exacerbation. Patient was seen on afternoon rounds; no family present. He was found sitting up to the edge of the bed, comfortably, on room air. He reports that he use the BiPAP overnight and has used oxygen most of the day. He reports he is feeling much better today; decreased dsypnea at rest, improved cough. He denies fever, chills, chest pain, palpitations, orthopnea, abdominal pain, nausea vomiting and diarrhea. He has no questions or concerns; looking forward to possible dischage tomorrow. No concerns per nursing. Reason For Visit: ACUTE RESPIRATORY FAILURE WITH HYPOXIA, Physical Exam Vital Signs: Temp Pulse Resp BP Pulse Ox 97.6 F 79 23 H 124/76 98 05/09/19 15:23 05/09/19 15:23 05/09/19 15:23 05/09/19 15:23 05/09/19 15:23 Intake & Output 05/08/19 05/09/19 05/10/19 06:59 06:59 06:59 Intake Total 3350 3038 600 Balance 3350 3038 600 Weight 75.2 kg 72.3 kg General appearance: PRESENT: no acute distress, cooperative, well-developed, well-nourished Head exam: PRESENT: atraumatic, normocephalic Eye exam: PRESENT: conjunctiva pink, EOMI, PERRLA. ABSENT: scleral icterus Ear exam: PRESENT: normal external ear exam Mouth exam: PRESENT: moist, tongue midline Neck exam: ABSENT: carotid bruit, JVD, lymphadenopathy, thyromegaly Respiratory exam: PRESENT: rhonchi - bibasilar; clears briefly w/ cough, symmetrical, unlabored, wheezes - slight wheezing. ABSENT: rales Cardiovascular exam: PRESENT: RRR, +S1, +S2. ABSENT: diastolic murmur, rubs, systolic murmur Pulses: PRESENT: normal dorsalis pedis pul Vascular exam: PRESENT: normal capillary refill GI/Abdominal exam: PRESENT: normal bowel sounds, soft. ABSENT: distended, guarding, mass, organolmegaly, rebound, tenderness Rectal exam: PRESENT: deferred Extremities exam: PRESENT: full ROM. ABSENT: calf tenderness, clubbing, pedal edema Musculoskeletal exam: PRESENT: ambulatory Neurological exam: PRESENT: alert, awake, oriented to person, oriented to place, oriented to time, oriented to situation, CN II-XII grossly intact. ABSENT: motor sensory deficit Psychiatric exam: PRESENT: appropriate affect, normal mood. ABSENT: homicidal ideation, suicidal ideation Skin exam: PRESENT: dry, intact, warm. ABSENT: cyanosis, rash Results Laboratory Results: 05/09/19 03:37 05/08/19 04:59 05/09/19 05/09/19 03:37 09:09 WBC 13.4 H RBC 5.56 H Hgb 17.1 H Hct 51.8 H MCV 93 MCH 30.8 MCHC 33.0 RDW 13.5 Plt Count 146 L TSH 1.55 Free T4 0.90 Free T3 pg/mL 3.19 05/07/19 05/07/19 05/07/19 06:55 06:55 06:55 Creatine Kinase 173 H Troponin I < 0.012 NT-Pro-B Natriuret Pep 287 05/07/19 05/07/19 14:50 20:53 Creatine Kinase Troponin I < 0.012 < 0.012 NT-Pro-B Natriuret Pep Assessment and Plan - Diagnosis (1) Acute respiratory failure with hypoxia Is this a current diagnosis for this admission?: Yes Plan: Significant improvement today; now tolerating periods off oxygen, decreased dyspnea, improved lung sounds. Secondary to COPD exacerbation. Patient was found to have room air saturation of 86%; he is not home O2 dependent. ABG demonstrates respiratory acidosis with hypercapnia and hypoxia. Follow-up ABG is improved. D-dimer negative. Chest x-ray benign. No evidence of CHF on chest x-ray, laboratory evaluation, or exam. He is provided supplemental oxygen and BiPAP as needed to meet saturations greater than 89%. Remaining management as below. (2) Acute exacerbation of chronic obstructive pulmonary disease (COPD) Is this a current diagnosis for this admission?: Yes Plan: Patient with history of COPD. He does have an 80-year pack history; stopped smoking 2 packs/day proximately 2 years ago when he transition to 3 cigars daily. He continues to have daily use. Supplemental oxygen and BiPAP as needed to maintain saturations greater than 89%. Continue scheduled and as needed nebulizer treatments; decreased frequency today. Begin weaning IV Solu-Medrol. Mucinex twice daily. Incentive spirometer and flutter valve when off BiPAP. Recommend outpatient pulmonology follow-up and overnight sleep study. (3) Chest pain Is this a current diagnosis for this admission?: Yes Plan: Resovled; likely secondary to acute respiratory failure/distress. Patient describes left chest pain, nonradiating, without exacerbating or alleviating factors. Pain is not worsened by movement/activity, deep inspiration or cough. EKG demonstrates normal sinus rhythm without acute findings. Chest x-ray is benign. Troponins negative x 3 Lipid panel and A1C are nml. We will continue monitor on continuous cardiac telemetry. Daily aspirin and statin therapy. (4) Hypotension Qualifiers: Hypotension type: unspecified hypotension type Qualified Code(s): I95.9 - Hypotension, unspecified Is this a current diagnosis for this admission?: Yes Plan: Likely secondary to adrenal insufficiency Thyroid panel normal. A.m. cortisol low. ACTH stimulation testing response 18, low end of normal. ACTH level pending; this is a send out test and will not return prior to patient's expected discharge. Discussed with patient importance of following up with his primary care provider. Start Cortef 10 mg every morning and 5 mg after lunch. Patient to be discharged on this medication. Continue orthostatic blood pressures every shift. Continue to hold lisinopril. Half dose Metoprolol with holding parameters. (5) Polycythemia Is this a current diagnosis for this admission?: Yes Plan: Patient reports history of the same; proximal he 3 years ago the patient was incidentally found to have an elevated hemoglobin during preoperative blood work. He did see Dr. Barnhart who did phlebotomy x3 but reports that she was never able to identify the cause of his elevated H&H. Hemoglobin today 19.3-> 18.2-> 17.1 Of note, the patient does have an 80-year pack history and is a continuous tob acco user. Daily CBC. Smoking cessation is encouraged. Management of COPD exacerbation as above. DVT prophylaxis with heparin. Discussed with Dr. Nunez; no additional work up/management needed while admitted. Follow up as outpatient. (6) Tobacco dependence Is this a current diagnosis for this admission?: Yes Plan: Smoking cessation is encouraged. Nicotine replacement therapies are provided. (7) Alcohol dependence Qualifiers: Substance use status: uncomplicated Qualified Code(s): F10.20 - Alcohol dependence, uncomplicated Is this a current diagnosis for this admission?: Yes Plan: Patient admits to 2-3 drinks daily. Denies history of withdrawal. Folic acid and thiamin supplementation. PRN p.o. ativan as needed. Monitor closely for evidence of withdrawal. (8) Adrenal insufficiency Is this a current diagnosis for this admission?: Yes Plan: A.m. cortisol and stimulation testing highly suggestive of primary adrenal insuf ficiency. Thyroid panel normal. A.m. cortisol low. ACTH stimulation testing response 18, low end of normal. ACTH level pending; this is a send out test and will not return prior to patient's expected discharge. Discussed with patient importance of following up with his primary care provider. Start Cortef 10 mg every morning and 5 mg after lunch. Patient to be discharged on this medication. Discussed changing positions slowly and importance of following up with primary care provider to review ACTH level once resulted. - Time Time Spent with patient: 25-34 minutes Medications reviewed and adjusted accordingly: Yes Anticipated discharge: Home Within: within 24 hours
[2019-05-09] MEDS: ATORVASTATIN CALCIUM 40 MG TABLET PO SCH (23:12)
[2019-05-09] MEDS: CYCLOSPORINE 0.05% OPH EMULSIO 0.4 ML DROPERETTE OU SCH (23:22)
[2019-05-10] MEDS: ZOLPIDEM TARTRATE 5 MG TABLET PO PRN (00:05)
[2019-05-10 05:05] LABS: MEAN CORPUSCULAR HEMOGLOBIN 31.2 pg (27.0-33.4); MEAN CORPUSCULAR HGB CONC 33.4 g/dL (32.0-36.0); MEAN CORPUSCULAR VOLUME 93 fl (80-97); PLATELET COUNT 165 10^3/uL (150-450); RED BLOOD COUNT 5.79 10^6/uL (4.35-5.55); RED CELL DISTRIBUTION WIDTH 14.1 % (11.5-14.0); WHITE BLOOD COUNT 14.1 10^3/uL (4.0-10.5)
[2019-05-10 05:34] LABS: ANION GAP 6 (5-19); BLOOD UREA NITROGEN 12 mg/dL (7-20); CALCIUM 8.8 mg/dL (8.4-10.2); CARBON DIOXIDE 31 mmol/L (22-30); CHLORIDE 102 mmol/L (98-107); GLUCOSE 122 mg/dL (75-110); POTASSIUM 4.7 mmol/L (3.6-5.0)
[2019-05-10] MEDS: METHYLPREDNISOLONE INJ 40 MG/1 ML SDV IV SCH (05:37)
[2019-05-10] MEDS: HEPARIN SOD (PORCINE) 5,000 UNIT/ML 1 ML VIAL SUBCUT SCH (05:38)
[2019-05-10] MEDS ORDERED: HYDROCORTISONE 10 MG TABLET PO SCH ×2 (07:00→14:00)
[2019-05-10] MEDS: IPRATROPIUM/ALBUTEROL 0.5-2.5 MG/3 ML AMPUL NEB SCH (07:41)
[2019-05-10] MEDS: ACETYLCYSTEINE 20% SOLN 800 MG/4 ML VIAL.NEB NEB SCH (07:41)
[2019-05-10] MEDS: METOPROLOL SUCCINATE 25 MG TAB.SR.24H PO SCH (09:31)
[2019-05-10] MEDS: FAMOTIDINE 20 MG TABLET PO SCH (09:31)
[2019-05-10] MEDS: DOCUSATE SODIUM 100 MG CAPSULE PO SCH (09:31)
[2019-05-10] MEDS: GUAIFENESIN 600 MG TABLET.SA PO SCH (09:31)
[2019-05-10] MEDS: ASPIRIN 81 MG TABLET, CHEWABLE PO SCH (09:31)
[2019-05-10] MEDS: CYCLOSPORINE 0.05% OPH EMULSIO 0.4 ML DROPERETTE OU SCH (09:31)
--- NOTE | 2019-05-10 13:23 | PDOC DISCHARGE SUMMARY ---
General - Admit/Disc Date/PCP Admission Date/Primary Care Provider: 05/08/19 11:30 SHELDON BLACK PA-C Discharge Date: 05/10/19 - Additional Information Resuscitation Status: Full Code Discharge Diet: As Tolerated Discharge Activity: Activity As Tolerated Prescriptions: Prednisone [Deltasone] 40 mg PO DAILY #6 tablet Ipratropium/Albuterol Sulfate [Duoneb 3 ml Ampul] 3 ml NEB RTQ8 #60 vial.neb Guaifenesin [Mucinex Sr 600 mg Tablet.sa] 600 mg PO Q12 #14 tablet.sa Home Medications: Aspirin [Ecotrin 81 mg EC Tablet] 81 mg PO DAILY 05/07/19 Sildenafil Citrate [Viagra] 50 mg PO ASDIR PRN MDD 100 MG 05/07/19 Simvastatin [Zocor 40 mg Tablet] 40 mg PO QHS 05/07/19 Zolpidem Tartrate [Ambien 5 mg Tablet] 5 mg PO HSP PRN 05/07/19 Guaifenesin [Mucinex Sr 600 mg Tablet.sa] 600 mg PO Q12 #14 tablet.sa 05/10/19 Ipratropium/Albuterol Sulfate [Duoneb 3 ml Ampul] 3 ml NEB RTQ8 #60 vial.neb 05/10/19 Metoprolol Succinate [Toprol Xl 25 mg Tab.sr] 12.5 mg PO DAILY tab.sr.24h 05/10/19 Nicotine [Nicoderm 14 mg/24 Hr Transdermal Patch] 1 each TD DAILYP PRN patch.td24 05/10/19 Prednisone [Deltasone] 40 mg PO DAILY #6 tablet 05/10/19 History of Present Illness History of Present Illness: TRINITY SANCHEZ is a 68 year old male with a past medical history of hypertension, hyperlipidemia, CABG x3, and COPD who presented to the emergency department today with a complaint of sudden onset of shortness of breath beginning last night associated with productive cough, low-grade fever, and left-sided chest pain. He denies radiation of pain; described as tightness, without alleviating or aggravating factors. Evaluation in the emergency department revealed tachypnea, hypoxia on room air, hypotension, leukocytosis, elevated hemoglobin (19.3), normal coags and d-dimer, unremarkable chemistries, normal troponin, EKG demonstrating sinus rhythm with PACs, and benign chest x-ray. Patient was provided nebulizer treatments, IV Solu-Medrol, IV fluid bolus, and referred to the hospitalist service for admission and management of the above- stated complaints and findings. Hospital Course Hospital Course: (1) Acute respiratory failure with hypoxia Significant improvement today; now tolerating periods off oxygen, decreased dyspnea, improved lung sounds. Secondary to COPD exacerbation. Patient was found to have room air saturation of 86%; he is not home O2 dependent. ABG demonstrates respiratory acidosis with hypercapnia and hypoxia. Follow-up ABG is improved. D-dimer negative. Chest x-ray benign. No evidence of CHF on chest x-ray, laboratory evaluation, or exam. He is provided supplemental oxygen and BiPAP as needed to meet saturations greater than 89%. Patient is currently stable on room air. Okay for discharge. (2) Acute exacerbation of chronic obstructive pulmonary disease (COPD) Patient with history of COPD. He does have an 80-year pack history; stopped smoking 2 packs/day proximately 2 years ago when he transition to 3 cigars daily. He continues to have daily use. Supplemental oxygen and BiPAP as needed to maintain saturations greater than 89%. Continue scheduled and as needed nebulizer treatments; decreased frequency today. Begin weaning IV Solu-Medrol. Mucinex twice daily. Incentive spirometer and flutter valve when off BiPAP. Recommend outpatient pulmonology follow-up and overnight sleep study. Will discharge on short course of oral prednisone. (3) Chest pain Resovled; likely secondary to acute respiratory failure/distress. Patient describes left chest pain, nonradiating, without exacerbating or alleviating factors. Pain is not worsened by movement/activity, deep inspiration or cough. EKG demonstrates normal sinus rhythm without acute findings. Chest x-ray is benign. Troponins negative x 3 Lipid panel and A1C are nml. Currently asymptomatic and hemodynamically stable. Continue aspirin and statin. Follow-up outpatient with his PCP. (4) Hypotension Likely secondary to adrenal insufficiency Thyroid panel normal. A.m. cortisol low. ACTH stimulation testing response 18, low end of normal. ACTH level pending; this is a send out test and will not return prior to patient's expected discharge. Discussed with patient importance of following up with his primary care provider. Start Cortef 10 mg every morning and 5 mg after lunch. Patient to be discharged on this medication. Continue orthostatic blood pressures every shift. Continue to hold lisinopril. Half dose Metoprolol on discharge. (5) Polycythemia Patient reports history of the same; proximal he 3 years ago the patient was incidentally found to have an elevated hemoglobin during preoperative blood w ork. He did see Dr. Barnhart who did phlebotomy x3 but reports that she was never able to identify the cause of his elevated H&H. Hemoglobin today 19.3-> 18.2-> 17.1 Of note, the patient does have an 80-year pack history and is a continuous tobacco user. Daily CBC. Smoking cessation is encouraged. Management of COPD exacerbation as above. DVT prophylaxis with heparin. This issue was discussed with Dr. Nunez; no additional work up/management needed while admitted. Follow up as outpatient. (6) Tobacco dependence Smoking cessation is encouraged. Nicotine replacement therapies are provided. (7) Alcohol dependence Patient admits to 2-3 drinks daily. Denies history of withdrawal. Folic acid and thiamin supplementation. PRN p.o. ativan as needed. Monitored closely for evidence of withdrawal. (8) Adrenal insufficiency Thyroid panel normal. A.m. cortisol low. ACTH stimulation testing response 18, low end of normal. ACTH level pending; this is a send out test and will not return prior to patient's expected discharge. Discussed with patient importance of following up with his primary care provider. Physical Exam Vital Signs: Temp Pulse Resp BP Pulse Ox 97.4 F 75 16 125/77 99 05/10/19 11:22 05/10/19 11:22 05/10/19 11:22 05/10/19 11:22 05/10/19 11:22 Intake & Output 05/09/19 05/10/19 05/11/19 06:59 06:59 06:59 Intake Total 3038 1438 600 Balance 3038 1438 600 Weight 159 lb 6.307 oz 175 lb 7.807 oz Results Laboratory Results: 05/10/19 03:51 05/10/19 03:51 05/10/19 05/10/19 03:51 03:51 WBC 14.1 H RBC 5.79 H Hgb 18.0 H Hct 54.0 H MCV 93 MCH 31.2 MCHC 33.4 RDW 14.1 H Plt Count 165 Sodium 139.1 Potassium 4.7 Chloride 102 Carbon Dioxide 31 H Anion Gap 6 BUN 12 Creatinine 0.65 Est GFR ( Amer) > 60 Glucose 122 H Calcium 8.8 05/08/19 11:30 Sputum Gram Stain - Final 05/08/19 11:30 Sputum Sputum Culture - Final NORMAL JOVANNY 05/07/19 05/07/19 05/07/19 06:55 06:55 06:55 Creatine Kinase 173 H Troponin I < 0.012 NT-Pro-B Natriuret Pep 287 05/07/19 05/07/19 14:50 20:53 Creatine Kinase Troponin I < 0.012 < 0.012 NT-Pro-B Natriuret Pep Qualifiers - * PATIENT BEING DISCHARGED WITH ANY OF THE FOLLOWING DIAGNOSIS: No Acute Heart Failure - Is this a Heart Failure Patient?: No Plan Time Spent: Greater than 30 Minutes - 35 minutes
[2019-05-10 13:59] VITALS: BP 108/72
== END 2019-05-10 14:20 | disposition home or self-care (01) | DRG 190 ==
LOC: ER 06:44 → EH 10:53 → INTOOBSV 10:53 → 4S 15:52 → OBSVTOIN 05-08 11:30
PROVIDERS: ADMIT Internal Medicine; ATTEND Internal Medicine
PROC: 5A09357 Assistance with Respiratory Ventilation, Less than 24 Consecutive Hours, Continuous Positive Airway Pressure (ICD-10-PCS; principal; 2019-05-08)
DX: J44.1 Chronic obstructive pulmonary disease with (acute) exacerbation (principal); J96.01 Acute respiratory failure with hypoxia; E27.40 Unspecified adrenocortical insufficiency; I95.9 Hypotension, unspecified; D75.1 Secondary polycythemia; I10 Essential (primary) hypertension; I49.1 Atrial premature depolarization; F10.20 Alcohol dependence, uncomplicated; I25.10 Atherosclerotic heart disease of native coronary artery without angina pectoris; E78.5 Hyperlipidemia, unspecified; D72.829 Elevated white blood cell count, unspecified; F17.290 Nicotine dependence, other tobacco product, uncomplicated; Z96.643 Presence of artificial hip joint, bilateral; Z79.52 Long term (current) use of systemic steroids; Z79.82 Long term (current) use of aspirin; Z95.1 Presence of aortocoronary bypass graft; Z71.6 Tobacco abuse counseling
CPT/HCPCS: 36415; 36600; 71045; 80048; 80053; 80061; 81001; 82024; 82533; 82550; 82803; 83036; 83880; 84439; 84443; 84481; 84484; 85025; 85027; 85379; 85610; 87070; 87205; 93005; 93010; 94640; 94660; 96361; 96374; 99291; G0378; J0834; J1644; J2920; J2930; J3490; J7030; J7512; J7620